=== PATIENT | male | born 2005 | race African-American/Black ===

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

== ENCOUNTER 2023-02-14 22:19 | Emergency (ER) | payer MEDICAID, OTHER | END 2023-02-14 23:07 | disposition home or self-care (01) | LOC: ERS 22:19 | DX: H66.91 Otitis media, unspecified, right ear (principal) | CPT/HCPCS: 99282 ==

== ENCOUNTER 2025-09-28 14:22 | Emergency (ER) | payer SELFPAY | END 2025-09-28 17:13 | disposition home or self-care (01) | LOC: ERS 14:22 | DX: L03.011 Cellulitis of right finger (principal) | CPT/HCPCS: 99283 ==